=== PATIENT | female | born 1950 | race Caucasian/White ===

== ENCOUNTER → 2023-04-14 10:41 | Outpatient (REF) | payer OTHER, SELFPAY | LOC: WDC 10:41 | PROVIDERS: ATTENDING PHYSICIAN Physician Assistant Medical | DX: Z12.31 Encounter for screening mammogram for malignant neoplasm of breast (principal) | CPT/HCPCS: 77063; 77067 ==

== ENCOUNTER → 2023-04-18 10:36 | Outpatient (REF) | payer OTHER, SELFPAY | LOC: WDC 10:36 | PROVIDERS: ATTENDING PHYSICIAN Physician Assistant Medical | DX: R92.8 Other abnormal and inconclusive findings on diagnostic imaging of breast (principal) | CPT/HCPCS: 77065 ==

== ENCOUNTER → 2023-04-21 06:51 | Outpatient (REF) | payer OTHER, SELFPAY ==
--- NOTE | 2023-04-21 09:00 | OID.BR.INTR ---
JOELLED Breast Navigator - Initial
- -
Date of Contact: 04/21/23
Met with patient. Patient given information on navigator services available at [facility]. Will follow up as needed per protocol.
== END ==
LOC: WDC 06:51
PROVIDERS: ATTENDING PHYSICIAN Physician Assistant Medical
DX: R92.1 Mammographic calcification found on diagnostic imaging of breast (principal)
CPT/HCPCS: 88305; 19081; 76098; 88341; 88342; 88360; A4648

== ENCOUNTER 2023-05-06 06:31 | Inpatient (IN) | payer OTHER, SELFPAY ==
[2023-05-01 08:43] LABS: Hematocrit 40.4 % (37.0-47.0); Hemoglobin 14.1 g/dL (12.0-16.0); Mean Corp Hgb Conc. 34.9 g/dL (33.0-37.0); Mean Corpuscular Hgb 32.3 pg (27.0-31.0); Mean Corpuscular Volume 92.7 fL (81.0-99.0); Mean Platelet Volume 11.1 fL (7.4-10.4); Platelet Count 160 10^3/uL (130-400); Red Blood Cell Count 4.36 10^6/uL (4.20-5.40); Red Cell Dist. Width 12.9 % (11.5-14.5); White Blood Cell Count 5.4 10^3/uL (4.8-10.8)
[2023-05-01 10:38] LABS: ALT (SGPT) 25 U/L (0-35); AST (SGOT) 35 U/L (14-36); Albumin 4.2 g/dl (3.5-5.0); Alkaline Phosphatase 51 U/L (38-126); Blood Urea Nitrogen 13 mg/dl (7-17); Calcium 9.6 mg/dl (8.4-10.2); Carbon Dioxide 27 mmol/L (22-30); Chloride 107 mmol/L (98-107); Glucose 80 mg/dl (70-99); Potassium 4.6 mmol/L (3.5-5.1); Sodium 138 mmol/L (135-145); Total Bilirubin 0.9 mg/dl (0.2-1.3); Total Protein 6.4 g/dl (6.3-8.2); eGFR > 60.00
[2023-05-01 11:12] LABS: Vitamin D, 25-OH*** 50.4 ng/mL (30-80)
[2023-05-01 11:16] LABS: Prealbumin (Transthyretin) 20.5 mg/dl (17.6-36.0)
[2023-05-01 12:42] VITALS: BMI 20.7
[2023-05-06] VITALS (18 sets, daily range): BP systolic 0–128; BP diastolic 44–64; BMI 20.7
[2023-05-06] MEDS: TYLENOL 1000 MG PO (13:13)
[2023-05-06] MEDS: LOVENOX 40 MG SC (13:13)
[2023-05-06] MEDS: NORMOSOL-R 1000 IV (13:20)
[2023-05-06] MEDS: D5/0.45%NSS with KCL 20 MEQ 1000 IV (18:39)
[2023-05-06] MEDS: LIPITOR 20 MG PO (19:15)
--- NOTE | 2023-05-06 20:00 | TRANSFER ---
Received report from Farhana in pacu. Pt arrived via bed at 1905. L breast incision glued with ABD, gauze and surgical bra CDI. Pt denies pain. VS within normal limits. Call og within reach and bed in lowest position. Assessment ongoing.
[2023-05-06] MEDS: COLACE 100 MG PO (20:21)
[2023-05-07 03:20] VITALS: BP 107/45
[2023-05-07] MEDS: D5/0.45%NSS with KCL 20 MEQ 1000 IV (04:17)
[2023-05-07 07:20] VITALS: BP 103/49
[2023-05-07] MEDS: VITAMIN C 250 MG PO (08:19)
[2023-05-07] MEDS: OSCAL 500 + D 500 MG PO (08:19)
[2023-05-07] MEDS: COLACE 100 MG PO (08:19)
[2023-05-07] MEDS: PROTONIX 40 MG PO (08:19)
--- NOTE | 2023-05-07 09:44 | W.PN.UPDATE ---
Update Note
Progress Note Update
Pt is post op day #1 S/P left simple mastectomy. She is doing well and has no pain. Tolerating PO intake. No evidence of flap necrosis. Minimal drainage from her drain which is expected. Pathology is pending. Post op appointment has been set.
[2023-05-07 11:10] VITALS: BP 113/52
[2023-05-07 11:44] VITALS: BMI 20.5
--- NOTE | 2023-05-07 12:20 | VNURNOTE ---
Home Health Liaison met with patient at 1130 to discuss [facility] nurse visits, schedule and homebound status. Patient is agreeable and understands that visits at home will be 2-3 x per week to assess and teach medical management and BARBIE drain care.
[facility] brochure provided with contact information. Patient is aware that [facility] will contact her for start of care in 1-2 days after discharge from .
[facility] referral completed by CM in [facility].
--- NOTE | 2023-05-07 14:43 | CM ---
Patient has been medically cleared for discharge to home with [facility] VN services. transported home.
--- NOTE | 2023-05-07 14:46 | CM ---
Initial assessment completed with patient who lives with her in a 2 story home with basement and 1 step to enter. B/B on 2nd floor and 1/2 bath on 1st. [employer] patient was independent and drove, no DME and no services in the home, no psychiatric
history, support system is and 2 children. Pharmacy is [facility] , PCP is Dr. Kuldeep Gar. Patient has L breast drain and will need VN services. [facility] has accepted patient.
--- NOTE | 2023-05-08 10:04 | W.DS.TRANS ---
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
-
Discharge Instructions:
Sleep Apnea Risk Low
Discharge Diagnosis/Procedures Left simple mastectomy
Diet No restrictions
Additional Diets Take extra protein and vit C 1000mg per day
Activity Other activity
Additional Activity No weight bearing RUE and no strenuous activity
Driving Restrictions No driving for 1 week
Bathing Restrictions OK to Shower
Other Services VN
Wound Care shower tomorrow and as needed thereafter. Pat
wound dry. Support drain bulb. Replace gauze
pads and bra. You may wash the surgical bra and
/or wear another supportive sports bra
Instructions:
Stand-Alone Forms:
Changes to Home Medications: No
Discharge Medications:
DC Medications w/original date entered in [employer]
ascorbic acid (vitamin C) 250 mg tablet (Vitamin C) 250 mg PO DAILY Supplement 02/01/23
aspirin 81 mg tablet,delayed release 81 mg PO QPM Blood Clot Prevention/Tx 02/01/23
atorvastatin 20 mg tablet (Lipitor) 20 mg PO HS High Cholesterol 02/01/23
bdavzdbqvd-zjjckitvpwgvy-jbuylzhq 50 mg-325 mg-40 mg capsule 1 cap PO DAILYPRN PRN headaches 02/01/23
calcium carbonate 500 mg-vitamin D3 10 mcg (400 unit) tablet (Calcium 500 + D) 1 tab PO DAILY Supplement 02/01/23
ojxtwsa-wfaqaurfj-adgk 333 mg-133 mg-5 mg tablet 1 tab PO DAILY Supplement 02/01/23
cholecalciferol (vitamin D3) 10 mcg (400 unit) tablet (Vitamin D3) 20 mcg PO DAILY Supplement 02/01/23
denosumab 60 mg/mL subcutaneous syringe (Prolia) 60 mg SC [id number] osteoporosis 02/01/23
vitamins A,C,N-mmza-owqyby 2,148 mcg-113 mg-45 mg-17.4 mg tablet (PreserVision AREDS) 1 tab PO DAILY Supplement 02/01/23
docusate sodium 100 mg capsule 100 mg PO BID 1 week #14 caps 05/07/23
Home Medication Changes
Pending Results: Yes
Additional Pending Results:
Pathology report
== END 2023-05-07 12:39 | disposition home health service (06) | DRG 583 ==
LOC: 2 SOUTH 06:31
PROVIDERS: ADMITTING PHYSICIAN Surgery; FAMILY PHYSICIAN Family Medicine
PROC: 0HTU0ZZ Resection of Left Breast, Open Approach (ICD-10-PCS; 2023-05-06)
DX: C50.912 Malignant neoplasm of unspecified site of left female breast (principal)
CPT/HCPCS: 88307; 36415; 80053; 82306; 84134; 85027; L8000

== ENCOUNTER → 2023-05-28 13:38 | Outpatient (REF) | payer OTHER, SELFPAY | LOC: WDC 13:38 | PROVIDERS: ATTENDING PHYSICIAN Surgery; FAMILY PHYSICIAN Family Medicine | DX: T14.8XXA Other injury of unspecified body region, initial encounter (principal) | CPT/HCPCS: 76642 ==

== ENCOUNTER → 2023-06-05 14:39 | Outpatient (REF) | payer OTHER, SELFPAY | LOC: RCS 14:39 | PROVIDERS: ATTENDING PHYSICIAN Internal Medicine Hematology & Oncology; FAMILY PHYSICIAN Family Medicine | DX: Z85.3 Personal history of malignant neoplasm of breast (principal); R93.7 Abnormal findings on diagnostic imaging of other parts of musculoskeletal system; R93.2 Abnormal findings on diagnostic imaging of liver and biliary tract | CPT/HCPCS: 93306 ==

== ENCOUNTER → 2023-06-09 15:43 | Outpatient (REF) | payer OTHER, SELFPAY ==
[2023-06-09 16:21] LABS: % Basophils 0.5 % (0-2); % Eosinophils 3.2 % (0-6); % Immature Granulocytes 0.4 % (0-0.5); % Lymphocytes 27.7 % (20.5-51.1); % Monocytes 8.2 % (1.7-9.3); Absolute Eosinophils 0.2 10^3/uL (0-0.7); Absolute Lymphocytes 1.6 10^3/uL (1.2-3.4); Absolute Monocytes 0.5 10^3/uL (0.1-0.6); Absolute Neutrophils 3.4 10^3/uL (1.4-6.5); Hemoglobin 12.9 g/dL (12.0-16.0); Mean Corp Hgb Conc. 34.9 g/dL (33.0-37.0); Mean Corpuscular Hgb 32.4 pg (27.0-31.0); Mean Platelet Volume 11.3 fL (7.4-10.4); Nucleated Red Blood Cells % 0 %; Platelet Count 159 10^3/uL (130-400); Red Blood Cell Count 3.98 10^6/uL (4.20-5.40); Red Cell Dist. Width 12.7 % (11.5-14.5); White Blood Cell Count 5.6 10^3/uL (4.8-10.8)
[2023-06-09 16:35] LABS: ALT (SGPT) 22 U/L (0-35); AST (SGOT) 30 U/L (14-36); Alkaline Phosphatase 46 U/L (38-126); Blood Urea Nitrogen 14 mg/dl (7-17); Calcium 10.3 mg/dl (8.4-10.2); Carbon Dioxide 29 mmol/L (22-30); Chloride 102 mmol/L (98-107); Glucose 106 mg/dl (70-99); Sodium 138 mmol/L (135-145); Total Bilirubin 0.5 mg/dl (0.2-1.3); Total Protein 6.2 g/dl (6.3-8.2); eGFR > 60.00
== END ==
LOC: OIDL 15:43
PROVIDERS: ATTENDING PHYSICIAN Internal Medicine Hematology & Oncology
DX: Z85.3 Personal history of malignant neoplasm of breast (principal)
CPT/HCPCS: 80053; 85025

== ENCOUNTER → 2023-06-10 08:03 | Outpatient (REF) | payer OTHER, SELFPAY ==
[2023-06-10 08:30] VITALS: BP 123/60; BP_SYST 55
[2023-06-10] MEDS: ANCEF 10 IV (09:05)
[2023-06-10 10:45] VITALS: BP 130/62; BP_SYST 55
[2023-06-10 10:50] VITALS: BP 128/63; BP_SYST 57
[2023-06-10 11:05] VITALS: BP 115/59; BP_SYST 57
[2023-06-10 11:43] VITALS: BP 109/65
== END ==
LOC: RADI 08:03
PROVIDERS: ATTENDING PHYSICIAN Internal Medicine Hematology & Oncology; FAMILY PHYSICIAN Family Medicine
DX: C50.919 Malignant neoplasm of unspecified site of unspecified female breast (principal)
CPT/HCPCS: 36561; 76937; 77001; 99152; 99153; C1788

== ENCOUNTER → 2023-07-25 16:32 | Outpatient (REF) | payer OTHER, SELFPAY | LOC: RAD 16:32 | PROVIDERS: ATTENDING PHYSICIAN Physician Assistant Medical | DX: R05.3 Chronic cough (principal) | CPT/HCPCS: 71046 ==

== ENCOUNTER → 2023-07-31 09:09 | Outpatient (REF) | payer OTHER, SELFPAY | LOC: HWRAD 09:09 | PROVIDERS: ATTENDING PHYSICIAN Nurse Practitioner Adult Health; FAMILY PHYSICIAN Family Medicine | DX: Z85.3 Personal history of malignant neoplasm of breast (principal); R93.7 Abnormal findings on diagnostic imaging of other parts of musculoskeletal system; R93.2 Abnormal findings on diagnostic imaging of liver and biliary tract | CPT/HCPCS: 71270; Q9967 ==

== ENCOUNTER → 2023-08-20 11:08 | Outpatient (REF) | payer OTHER, SELFPAY | LOC: RCS 11:08 | PROVIDERS: ATTENDING PHYSICIAN Internal Medicine Hematology & Oncology; FAMILY PHYSICIAN Family Medicine; REFERRING PHYSICIAN Internal Medicine | DX: Z85.3 Personal history of malignant neoplasm of breast (principal); R93.7 Abnormal findings on diagnostic imaging of other parts of musculoskeletal system; R93.2 Abnormal findings on diagnostic imaging of liver and biliary tract | CPT/HCPCS: 93306 ==

== ENCOUNTER 2023-08-22 10:49 | Emergency (ER) | payer OTHER, SELFPAY ==
[2023-08-22 10:58] VITALS: BP 112/64; BMI 19.6
[2023-08-22 12:00] VITALS: BP 111/60
--- NOTE | 2023-08-22 12:20 | ED.GENMED ---
History of Present Illness
General
Chief Complaint: Breathing Problem
Source: patient
Exam Limitations: none
Time Seen by Provider: 08/22/23 11:51
History of Present Illness
History of Present Illness:
72-year-old female presents complaining of shortness of breath with exertion worsening over the past 2 weeks. She is a breast cancer patient. In the middle of her chemotherapy treatments. She was due for 1 today but that was canceled secondary to
her symptoms. She notes no overwhelming fatigue but significant heart racing with any minimal exertion. She denies chest pain. No leg swelling or calf pain. She denies any dark or tarry stools. She is not anticoagulated. She had an
echocardiogram performed yesterday. No other complaints.
Past History
Past History
ED Past Medical History: Cancer and Other (osteoporosis)
Social History
Tobacco: Non-smoker
Personal:
Living: with family
Phy Exam
Physical Exam
Physical Exam:
General: Cachectic appearing female no acute respiratory distress
HEENT: Normocephalic atraumatic
Heart: Regular rate and rhythm no murmurs
Lungs: Clear no wheeze
Abdomen is soft nontender
Extremities: No cyanosis or edema
Scores
Heart Failure Risk
Heart Failure Risk Score: Not Applicable
Course
Orders/Labs/Results
Orders:
Orders
08/22/23 11:04
Electrocardiogram (*1) Urgent
Reason for Study: Chest Pain
EKG- Treatment ONCE
08/22/23 12:08
0.9% Sodium Chloride 1000 ml [Nss] 1,000 ml IV BOLUS
08/22/23 12:17
BNP [NT-proBNP] Urgent
Complete Blood Count/With Diff Urgent
Comprehensive Metabolic Panel Urgent
Troponin I Urgent
08/22/23 13:04
CT Chest Pe Study Urgent
Comment:
Reason For Exam: ROPER
Abnormal Lab Results
08/22/23
12:17
WBC 4.6 L 10^3/uL
(4.8-10.8)
RBC 3.66 L 10^6/uL
(4.20-5.40)
Hgb 11.4 L g/dL
(12.0-16.0)
Hct 33.6 L %
(37.0-47.0)
MCH 31.1 H pg
(27.0-31.0)
Abs Immat Gran (auto) 0.1 H 10^3/uL
(0-0.05)
Absolute Lymphs (auto) 0.7 L 10^3/uL
(1.2-3.4)
Absolute Monos (auto) 0.8 H 10^3/uL
(0.1-0.6)
Immature Gran % 1.3 H %
(0-0.5)
Lymphocytes % 15.8 L %
(20.5-51.1)
Monocytes % 16.8 H %
(1.7-9.3)
Sodium 132 L mmol/L
(135-145)
Creatinine 0.5 L mg/dL
(0.6-1.0)
Glucose 102 H mg/dl
(70-99)
Total Protein 5.3 L g/dl
(6.3-8.2)
Albumin 3.2 L g/dl
(3.5-5.0)
08/22/23 12:17
08/22/23 12:17
Vital Signs
Initial and Last Documented VS:
Initial Vital Signs
Temp Pulse Resp BP Pulse Ox
98.2 F 95 16 112/64 99
08/22/23 10:58 08/22/23 10:58 08/22/23 10:58 08/22/23 10:58 06/28/24 10:58
Last Documented Vital Signs
Temp Pulse Resp BP Pulse Ox
98.2 F 84 21 116/76 96
08/22/23 10:58 08/22/23 14:30 08/22/23 14:30 08/22/23 13:01 08/22/23 14:30
MDM/Problems Addressed
Differential Diagnosis Includes:
Dyspnea on exertion. Consider deconditioning versus anemia versus electrolyte abnormality versus CHF or PE.
Labs including troponin and BNP pending. Fluids ordered.
I reviewed echocardiogram dated 2 days ago which demonstrates ejection fraction of 50 to 55%
She had a CAT scan performed on July 6023 with IV contrast which was negative for acute abnormality
Consider PE study today secondary to dyspnea on exertion
*Critical Care Note
Total Time (30-74mins, 75-104mins- exclusive of procedures): Not Applicable
Update Note
Update Note:
PE study negative. Patient not anemic. Labs reviewed without significant finding. Troponin undetectable BNP low. Discussed findings with cardiology including recent echocardiogram. At this point no signs of ACS, PE anemia. Suspect
deconditioning/dehydration from chemotherapy. She was hydrated here no indication for admission. Stable for discharge
ED Attending Note
-
Portions of this chart may have been created with voice recognition software.� Occasional wrong word or��sound alike� substitutions may have occurred due to the inherent limitations of voice recognition software.
Discharge Plan
Departure
Patient Disposition: Home (Routine Discharge)
Date of Disposition: 08/22/23
Time of Disposition: 14:57
Patient with high blood pressure during this ER visit?: No
Discharge Problem:
Dyspnea on exertion
Instructions: Shortness of Breath (Dyspnea) (DC)
Prescriptions:
No Action
atorvastatin [Lipitor] 20 mg Tablet
20 mg PO HS
aspirin 81 mg Tablet,Delayed Release (Dr/Ec)
81 mg PO QPM
ascorbic acid (vitamin C) [Vitamin C] 250 mg Tablet
250 mg PO DAILY
cholecalciferol (vitamin D3) [Vitamin D3] 10 mcg (400 unit) Tablet
20 mcg PO DAILY
xsaqtbs-wxlnamvbi-ywwg 333-133-5 mg Tablet
1 tab PO DAILY
Prolia 60 mg/mL Syringe
60 mg SC [id number]
PreserVision AREDS 2,148 mcg-113 mg-45 mg-17.4mg Tablet
1 tab PO DAILY
docusate sodium 100 mg capsule
100 mg PO BID PRN (Reason: constipation)
Referrals:
Kuldeep Gar MD [Family Provider] -
Activity Restrictions/Additional Instructions:
Stay hydrated. Please return here for worsening symptoms otherwise continue to follow-up with your oncology and cardiology team
Interventions
Interventions:
*Risk Screen - Suicide Last Done: 08/22/23 10:58
*Neglect/Abuse Screening Last Done: 08/22/23 10:58
ED- Cardiac Assessment Last Done: 08/22/23 12:01
ED- Pulmonary Assessment Last Done: 08/22/23 12:01
Discharge Date and Time
Print Language: TANZANIAN
[2023-08-22] MEDS: NSS 1000 IV (12:45)
[2023-08-22 12:51] LABS: % Basophils 1.1 % (0-2); % Eosinophils 4.2 % (0-6); % Immature Granulocytes 1.3 % (0-0.5); % Lymphocytes 15.8 % (20.5-51.1); % Monocytes 16.8 % (1.7-9.3); % Neutrophils 60.8 % (42.2-75.2); Absolute Basophils 0.1 10^3/uL (0-0.2); Absolute Eosinophils 0.2 10^3/uL (0-0.7); Absolute Immature Granulocytes 0.1 10^3/uL (0-0.05); Absolute Lymphocytes 0.7 10^3/uL (1.2-3.4); Absolute Monocytes 0.8 10^3/uL (0.1-0.6); Absolute Neutrophils 2.8 10^3/uL (1.4-6.5); Hematocrit 33.6 % (37.0-47.0); Hemoglobin 11.4 g/dL (12.0-16.0); Mean Corp Hgb Conc. 33.9 g/dL (33.0-37.0); Mean Corpuscular Hgb 31.1 pg (27.0-31.0); Mean Corpuscular Volume 91.8 fL (81.0-99.0); Mean Platelet Volume 9.7 fL (7.4-10.4); Nucleated Red Blood Cells % 0 %; Platelet Count 261 10^3/uL (130-400); Red Blood Cell Count 3.66 10^6/uL (4.20-5.40); Red Cell Dist. Width 13.2 % (11.5-14.5); White Blood Cell Count 4.6 10^3/uL (4.8-10.8)
[2023-08-22 13:01] VITALS: BP 116/76
[2023-08-22 13:01] LABS: ALT (SGPT) 23 U/L (0-35); AST (SGOT) 27 U/L (14-36); Albumin 3.2 g/dl (3.5-5.0); Alkaline Phosphatase 50 U/L (38-126); Blood Urea Nitrogen 10 mg/dl (7-17); Calcium 9.5 mg/dl (8.4-10.2); Carbon Dioxide 27 mmol/L (22-30); Chloride 101 mmol/L (98-107); Estimated Creatinine Clearance 76 ml/min; Glucose 102 mg/dl (70-99); Potassium 4.4 mmol/L (3.5-5.1); Sodium 132 mmol/L (135-145); Total Bilirubin 0.5 mg/dl (0.2-1.3); Total Protein 5.3 g/dl (6.3-8.2); eGFR > 60.00
[2023-08-22 13:12] LABS: Troponin I < 0.012 ng/ml
--- NOTE | 2023-08-22 15:19 | VATNOTE ---
right subq port deaccessed per protocol. brisk blood return noted prior to. at bedside.
== END 2023-08-22 15:32 | disposition home or self-care (01) ==
LOC: EMR 10:49
PROVIDERS: Physician Assistant; EMERGENCY PHYSICIAN Student in an Organized Health Care Education/Training Program; FAMILY PHYSICIAN Family Medicine
DX: R06.09 Other forms of dyspnea (principal); R00.0 Tachycardia, unspecified; C50.919 Malignant neoplasm of unspecified site of unspecified female breast; R64 Cachexia; M81.0 Age-related osteoporosis without current pathological fracture; Z79.82 Long term (current) use of aspirin
CPT/HCPCS: 99284; 96374; 71275; 80053; 83880; 84484; 85025; 93005; Q9967

== ENCOUNTER → 2023-09-20 09:58 | Outpatient (REF) | payer OTHER, SELFPAY | LOC: RCS 09:58 | PROVIDERS: ATTENDING PHYSICIAN Internal Medicine; FAMILY PHYSICIAN Family Medicine | DX: I42.7 Cardiomyopathy due to drug and external agent (principal) | CPT/HCPCS: 93306; 93356 ==

== ENCOUNTER → 2023-12-08 13:04 | Outpatient (REF) | payer OTHER, SELFPAY | LOC: RCS 13:04 | PROVIDERS: ATTENDING PHYSICIAN Internal Medicine; FAMILY PHYSICIAN Family Medicine | DX: I42.7 Cardiomyopathy due to drug and external agent (principal) | CPT/HCPCS: 93306; 93356 ==

== ENCOUNTER → 2024-03-16 09:20 | Outpatient (REF) | payer OTHER, SELFPAY | LOC: RCS 09:20 | PROVIDERS: ATTENDING PHYSICIAN Internal Medicine; FAMILY PHYSICIAN Family Medicine | DX: I42.7 Cardiomyopathy due to drug and external agent (principal); I45.10 Unspecified right bundle-branch block; T45.1X5D Adverse effect of antineoplastic and immunosuppressive drugs, subsequent encounter; I25.10 Atherosclerotic heart disease of native coronary artery without angina pectoris; Z17.1 Estrogen receptor negative status [ER-]; C50.912 Malignant neoplasm of unspecified site of left female breast; I31.39 Other pericardial effusion (noninflammatory) | CPT/HCPCS: 93306; 93356 ==

== ENCOUNTER → 2024-04-26 08:53 | Outpatient (REF) | payer OTHER, SELFPAY | LOC: HWWDC 08:53 | PROVIDERS: ATTENDING PHYSICIAN Internal Medicine Rheumatology; FAMILY PHYSICIAN Family Medicine; REFERRING PHYSICIAN Internal Medicine Hematology & Oncology | DX: M81.0 Age-related osteoporosis without current pathological fracture (principal); Z12.31 Encounter for screening mammogram for malignant neoplasm of breast | CPT/HCPCS: 77063; 77067; 77080 ==

== ENCOUNTER → 2024-04-28 08:27 | Outpatient (REF) | payer OTHER, SELFPAY | LOC: WDC 08:27 | PROVIDERS: ATTENDING PHYSICIAN Internal Medicine Hematology & Oncology; FAMILY PHYSICIAN Family Medicine | DX: N63.20 Unspecified lump in the left breast, unspecified quadrant (principal); N63.23 Unspecified lump in the left breast, lower outer quadrant | CPT/HCPCS: 76642 ==

== ENCOUNTER → 2024-05-05 12:03 | Outpatient (REF) | payer OTHER, SELFPAY | LOC: WDC 12:03 | PROVIDERS: ATTENDING PHYSICIAN Internal Medicine Hematology & Oncology; FAMILY PHYSICIAN Family Medicine | DX: N63.23 Unspecified lump in the left breast, lower outer quadrant (principal) | CPT/HCPCS: 88172; 88173; 88305; 10005; 88177 ==

== ENCOUNTER 2024-06-01 06:08 | Day surgery (SDC) | payer OTHER, SELFPAY ==
[2024-05-28 12:13] LABS: Prealbumin (Transthyretin) 18.8 mg/dl (17.6-36.0)
[2024-05-28 12:29] LABS: Vitamin D, 25-OH*** 51.8 ng/mL (30-80)
[2024-05-28 14:02] VITALS: BMI 21.6
[2024-06-01 07:13] VITALS: BMI 21.6
[2024-06-01 07:14] VITALS: BP 128/60
[2024-06-01] MEDS: TYLENOL 1000 MG PO (07:18)
--- NOTE | 2024-06-01 08:34 | W.IMMPOSTOP ---
Surgical Immed Post Op Note
-
Primary Surgeon: Kelsy
Assisting Surgeon: None
Pre-op Diagnosis: Left chest wall/breast mass
Post-op Diagnosis: Same
Procedure Performed: Excisional biopsy left chest wall/breast mass
Anesthesia Type: TIVA
Specimen / Cultures: Left chest wall/breast mass
Estimated Blood Loss: 2cc
Complications: None
Operative Findings: None
--- NOTE | 2024-06-01 08:38 | OR.RPT ---
Addendum entered and electronically signed by Adriana Tierney MD 06/01/24 15:08:
Date of procedure: 06/01/24
Pre-Op DX: Left chest wall/breast mass
Post-Op DX: Left chest wall/breast mass
Procedure: Excisional biopsy left chest wall/breast mass
Original Note:
Operative Report
Operative Report
The patient is a 73-year-old female with a remote history of left breast carcinoma recurring in 2020 who underwent left mastectomy without reconstruction. She presents now for a palpable chest wall/breast mass. This underwent fine-needle
aspiration and there were some atypical cells present with fatty necrosis therefore she decided upon complete excision.
The patient presented to the same-day surgical area where she verified site and procedure. She has a right sided port which was accessed for intravenous access and DVT and antibiotic prophylaxis were provided. She was taken to the operating room
and in the supine position intravenous sedation was delivered.
The left chest was prepped and draped in the usual sterile fashion and an appropriate timeout procedure was performed by all staff members. All tissues were anesthetized with 1% lidocaine plain and the patient had verified the location of the mass
manually. A transverse incision was made overlying the mass. Skin flaps were elevated with the cautery and the mass was excised using the cautery. It appeared to be calcified and more consistent with scar tissue. This was sent for immediate
pathologic analysis.
Hemostasis was maintained with the cautery. Marcaine 0.5% plain was instilled and one Hemoclip was placed at the location of the small lesion. The wound was closed using simple interrupted 3-0 Vicryl on deeper tissue and simple interrupted 4-0
Vicryl on subcutaneous tissue and the skin was closed with a running subcuticular 4-0 Monocryl. Surgical glue and a sterile compressive dressing were applied. All sponge needle and instrument counts were correct and the patient was transferred to
the recovery room in stable condition.
([id number])
[2024-06-01 08:42] VITALS: BP 115/62
[2024-06-01 08:45] VITALS: BP 117/57
[2024-06-01 09:00] VITALS: BP 100/76
[2024-06-01 09:15] VITALS: BP 131/59
== END 2024-06-01 09:30 | disposition home or self-care (01) ==
LOC: SDS 06:08
PROVIDERS: ATTENDING PHYSICIAN Surgery; FAMILY PHYSICIAN Family Medicine
DX: N60.22 Fibroadenosis of left breast (principal); D24.2 Benign neoplasm of left breast; Z85.3 Personal history of malignant neoplasm of breast
CPT/HCPCS: 19120; 88305; 36415; 82306; 84134; 88342; 93005; A4648; L8000

== ENCOUNTER → 2024-06-14 09:22 | Outpatient (REF) | payer OTHER, SELFPAY | LOC: RCS 09:22 | PROVIDERS: ATTENDING PHYSICIAN Internal Medicine; FAMILY PHYSICIAN Family Medicine | DX: I45.10 Unspecified right bundle-branch block (principal); I42.7 Cardiomyopathy due to drug and external agent; T45.1X5D Adverse effect of antineoplastic and immunosuppressive drugs, subsequent encounter; I25.10 Atherosclerotic heart disease of native coronary artery without angina pectoris; Z17.1 Estrogen receptor negative status [ER-]; C50.912 Malignant neoplasm of unspecified site of left female breast; I31.39 Other pericardial effusion (noninflammatory) | CPT/HCPCS: 93306; 93356 ==

== ENCOUNTER → 2024-12-14 09:21 | Outpatient (REF) | payer OTHER, SELFPAY | LOC: RCS 09:21 | PROVIDERS: ATTENDING PHYSICIAN Internal Medicine; FAMILY PHYSICIAN Family Medicine | DX: I42.7 Cardiomyopathy due to drug and external agent (principal); I45.10 Unspecified right bundle-branch block; T45.1X5D Adverse effect of antineoplastic and immunosuppressive drugs, subsequent encounter; I25.10 Atherosclerotic heart disease of native coronary artery without angina pectoris | CPT/HCPCS: 93306; 93356 ==

== ENCOUNTER → 2025-01-11 08:20 | Outpatient (REF) | payer OTHER, SELFPAY | LOC: WDC 08:20 | PROVIDERS: ATTENDING PHYSICIAN Surgery; FAMILY PHYSICIAN Family Medicine | DX: N63.0 Unspecified lump in unspecified breast (principal); C50.412 Malignant neoplasm of upper-outer quadrant of left female breast; N63.25 Unspecified lump in the left breast, overlapping quadrants | CPT/HCPCS: 76642 ==